=== PATIENT | female | born 1960 | race Caucasian/White ===

== ENCOUNTER 2016-10-21 18:18 | Emergency (ER) | payer MEDICAID, OTHER ==
[~2016-10-21] VITALS: Ht 162.6 cm; Wt 65.0 kg
[~2016-10-21 18:18] MED LIST: HDRP454O TOP; HYDR-3498 PO; METF500T4 PO
[2016-10-21 18:24] VITALS: Ht 162.6 cm; Wt 65.0 kg
--- NOTE | 2016-10-21 21:11 | ERD ---
ER Documentation Chief Complaint Date/Time DATE: 10/21/16 TIME: 21:10 Chief Complaint back pain and leg pain x 2 days HPI 56-year-old female presents here in emergency department for complaints of lower back pain for 2 days, patient discussed the pain as sharp pain, 8/10 scale , radiates from the left lower back to the left lower leg, worse upon movement. Patient has history of diabetes. Patient denies any incontinence. Patient denies any fever or chills. Patient denies any hematuria or dysuria. ROS All systems reviewed and are negative except as per history of present illness. 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 Hydrocodone/Acetaminophen ([place] 5-325 Tablet) 1 Each Tablet, 1 TAB PO Q6H Y for SEVERE PAIN LEVEL 7-10, #20 TAB Prov:HIEU NARVAEZ NP 10/21/16 Ibuprofen* (Motrin*) 600 Mg Tab, 600 MG PO Q6H Y for PAIN AND OR ELEVATED TEMP, #30 TAB Prov:HIEU NARVAEZ NP 10/21/16 Hydrophilic Base* (Aquaphor*) 454 Gm-Topical Oint, 1 APPLIC TOP BID for 30 Days , JAR Prov:PATRICIA PAYNE PA-C 11/20/15 Metformin* (Glucophage*) 500 Mg Tab, 500 MG PO BID, #30 TAB Prov:PATRICIA PAYNE PA-C 11/20/15 Hydrocodone Bit-Acetaminophen* ([place]*) 5-325 Mg Tab, 1 TAB PO Q6 Y for PAIN, # 4 TAB Prov:ARMANDO GREWLA DO 06/23/15 Allergies Allergies: Coded Allergies: No Known Allergy (Unverified , 11/20/15) PMhx/Soc History of Surgery: Yes (ectopic, tubal ligation) Hx Miscellaneous Medical Probl: Yes (dm) Hx Alcohol Use: No Hx Substance Use: No Hx Tobacco Use: No Smoking Status: Never smoker FmHx Family History: No coronary disease, No diabetes, No other Physical Exam Vitals Vital Signs Date Time Temp Pulse Resp B/P Pulse Ox O2 Delivery O2 Flow Rate FiO2 10/21/16 18:24 97.5 79 20 141/60 99 Physical Exam GENERAL: The patient is well developed and appropriate for usual state of health, in no apparent distress. CHEST: Clear to auscultation bilaterally. There are no rales, wheezes or rhonchi. HEART: Regular rate and rhythm. No murmurs, clicks, rubs or gallops. No S3 or S4. ABDOMEN: Soft, nontender and nondistended. Good bowel sounds. No rebound or guarding. No gross peritonitis. No gross organomegaly or masses. No Saunders sign or McBurney point tenderness. BACK: No midline or flank tenderness. Positive left straight leg test, muscle spasms noted in the paraspinal aspect of the lower lumbar spine. EXTREMITIES: Equal pulses bilaterally. There is no peripheral clubbing, cyanosis or edema. No focal swelling or erythema. Full range of motion. Grossly neurovascularly intact. NEURO: Alert and oriented. Cranial nerves 2-12 intact. Motor strength in all 4 extremities with 5/5 strength. Sensation grossly intact. Normal speech and gait. SKIN: There is no apparent rash or petechia. The skin is warm and dry. HEMATOLOGIC AND LYMPHATIC: There is no evidence of excessive bruising or lymphedema. No gross cervical, axillary, or inguinal lymphadenopathy. Results 24 hrs PROCEDURE: CT L-Spine. CLINICAL INDICATION: Back pain TECHNIQUE: A CT of the lumbar spine was performed on a multidetector CT scanner utilizing axial images from the thoracic lumbar junction through the lumbar sacral junction. Sagittal and coronal reformatted images were made. The CTDIvol is 37mGy and the DLP is 989mGycm. One or more of the following dose reduction techniques were used: Automated exposure control, Adjustment of the mA and/or kV according to patient size, and/or use of iterative reconstruction technique. COMPARISON: None available. FINDINGS: No acute lumbar vertebral compression fracture. Intraspinal linear fat density structure measuring 2.2 cm length at L2 and L3. L1-2: The disk space height is maintained. No significant disk protrusion, spinal canal stenosis or neural foraminal narrowing. L2-3: Discogenic degenerative endplate changes. No significant disk protrusion , spinal canal stenosis or neural foraminal narrowing. L3-4: Discogenic degenerative endplate changes. No significant disk protrusion , spinal canal stenosis or neural foraminal narrowing. L4-5: Discogenic degenerative endplate changes. Small disk bulge and mild facet arthropathy. No bony spinal canal narrowing. Mild bilateral foraminal narrowing.. L5-1: Small to moderate circumferential disk bulge and facet arthropathy. Moderate bilateral foraminal narrowing. No bony spinal canal narrowing. Bilateral sacroiliac joint degenerative changes. IMPRESSION: No acute lumbar vertebral compression fracture. Intraspinal linear fat density structure measuring 2.2 cm length at L2 and L3. This is indeterminate but may represent a filum terminale lipoma. Consider further evaluation with MRI if warranted. Mild discogenic disease L2-3 through L5-S1. Moderate bilateral foraminal narrowing of L5-S1 and mild bilateral foraminal narrowing L4-5. RPTAT: AA .Chester Quijano MD, MD Date Time Electronically viewed and signed by .Chester Quijano MD, MD on 10/21/2016 21:43 .T/ Procedures/MDM Medical Decision Making: Patient's pain is most likely consistent with a back strain, can be from the degenerative disc disease noted in the CT scan, can be also from sciatica. There is no suspicion for neurovascular compromise. Patient has intact sensation and circulation of the affected extremity and distal extremities. No incontinence, no suspicion for cauda equina syndrome, no saddle anesthesia, no symptoms of any acute bacterial infection, no symptoms of any perirectal abscesses, pilonidal cyst.There is low suspicion for septic arthritis. Patient does not have any fever. No symptoms of any aortic dissection or aortic aneurysm. Radiology exam not indicated at this time. Disposition: Home. Patient is given prescription for ibuprofen for mild to moderate pain, [place] for severe pain, gabapentin.. Patient was advised to avoid heavy lifting , apply warm compresses on affected area. Patient was advised that if symptoms are worse, numbness, tingling, high fever, unable to move joint , worsening symptoms, to return to emergency department immediately. Otherwise, patient is advised to follow up with the primary care doctor in 5-7 days for reevaluation of symptoms. Departure Diagnosis: Primary Impression: Back pain Back pain location: low back pain Chronicity: unspecified Back pain laterality: bilateral Sciatica presence: with sciatica Sciatica laterality: bilateral sciatica Qualified Code: M54.42 - Bilateral low back pain with bilateral sciatica, unspecified chronicity Condition: Stable Patient Instructions: Back Pain W/ Sciatica Additional Instructions: Patient is given prescription for ibuprofen for mild to moderate pain, [place] for severe pain, Flexeril for muscle spasm. Patient was advised to avoid heavy lifting , apply warm compresses on affected area. Patient was advised that if symptoms are worse, numbness, tingling, high fever, unable to move joint, worsening symptoms, to return to emergency department immediately. Otherwise, patient is advised to follow up with the primary care doctor in 5-7 days for reevaluation of symptoms. HIEU NARVAEZ NP Oct 21, 2016 21:11
--- NOTE | 2016-10-21 21:43 | RADRPT ---
PROCEDURE: CT L-Spine. CLINICAL INDICATION: Back pain TECHNIQUE: A CT of the lumbar spine was performed on a multidetector CT scanner utilizing axial im ages from the thoracic lumbar junction through the lumbar sacral junction. Sagittal and coronal ref ormatted images were made. The CTDIvol is 37mGy and the DLP is 989mGycm. One or more of the followin g dose reduction techniques were used: Automated exposure control, Adjustment of the mA and/or kV ac cording to patient size, and/or use of iterative reconstruction technique. COMPARISON: None available. FINDINGS: No acute lumbar vertebral compression fracture. Intraspinal linear fat density structure measuring 2.2 cm length at L2 and L3. L1-2: The disk space height is maintained. No significant disk protrusion, spinal canal stenosis or neural foraminal narrowing. L2-3: Discogenic degenerative endplate changes. No significant disk protrusion, spinal canal stenos is or neural foraminal narrowing. L3-4: Discogenic degenerative endplate changes. No significant disk protrusion, spinal canal stenos is or neural foraminal narrowing. L4-5: Discogenic degenerative endplate changes. Small disk bulge and mild facet arthropathy. No [place] spinal canal narrowing. Mild bilateral foraminal narrowing.. L5-1: Small to moderate circumferential disk bulge and facet arthropathy. Moderate bilateral forami nal narrowing. No bony spinal canal narrowing. Bilateral sacroiliac joint degenerative changes. IMPRESSION: No acute lumbar vertebral compression fracture. Intraspinal linear fat density structure measuring 2.2 cm length at L2 and L3. This is indeterminate but may represent a filum terminale lipoma. Consider further evaluation with MRI if warranted. Mild discogenic disease L2-3 through L5-S1. Moderate bilateral foraminal narrowing of L5-S1 and mild bilateral foraminal narrowing L4-5. RPTAT: AA .Chester Quijano MD, MD Date Time Electronically viewed and signed by .Chester Quijano MD, on 10/21/2016 21:43 .T/
[2016-10-21] MEDS ORDERED: IBUP-1542 PO (21:53)
[2016-10-21] MEDS ORDERED: GABA300C16 PO (21:53)
[2016-10-21] MEDS ORDERED: HYDR-906 PO (21:53)
[2016-10-21 22:25] VITALS: BP 150/74; PULSE 72; RESP 18; TEMP 98.1
== END 2016-10-21 22:25 | disposition home or self-care (01) ==
LOC: FTE 18:18
DX: M54.42 Lumbago with sciatica, left side (principal); M54.41 Lumbago with sciatica, right side; E11.9 Type 2 diabetes mellitus without complications; Z79.84 Long term (current) use of oral hypoglycemic drugs
CPT/HCPCS: 72131; Z7502

== ENCOUNTER 2018-05-28 16:46 | Emergency (ER) | payer OTHER ==
[~2018-05-28] VITALS: Ht 157.5 cm; Wt 80.0 kg
[~2018-05-28 16:46] MED LIST changes: +GABA300C16 PO; +HYDR-4011 PO; +IBUP-1542 PO; +METF-849 PO; -METF500T4 PO
[2018-05-28 17:06] VITALS: Ht 157.5 cm; Wt 80.0 kg
--- NOTE | 2018-05-28 20:21 | ERD ---
ER Documentation Chief Complaint Chief Complaint left knee pain s/p mechanical fall today HPI 57-year-old female, presents to the emergency department, complaining of left knee pain after a ground-level fall, mechanical, that occurred today, when the patient tripped over uneven pavement. The pain is 10/10. She denies distal weakness, numbness or tingling. No headache, no head trauma, no loss of consciousness. ROS All systems reviewed and are negative except as per history of present illness. Medications Home Meds Active Scripts Acetaminophen* (Tylenol*) 325 Mg Tablet, 2 TAB PO Q8 PRN for PAIN AND OR ELEVATED TEMP, #20 TAB Prov:CODY VILLA MD 05/28/18 Ibuprofen* (Motrin*) 600 Mg Tab, 600 MG PO Q8, #30 TAB Prov:CODY VILLA MD 05/28/18 Gabapentin* (Gabapentin*) 300 Mg Capsule, 300 MG PO BID, #60 CAP Prov:HIEU NARVAEZ NP 10/21/16 Hydrocodone/Acetaminophen ([place] 5-325 Tablet) 1 Each Tablet, 1 TAB PO Q6H PRN for SEVERE PAIN LEVEL 7-10, #20 TAB Prov:HIEU NARVAEZ NP 10/21/16 Ibuprofen* (Motrin*) 600 Mg Tab, 600 MG PO Q6H PRN for PAIN AND OR ELEVATED TEMP, #30 TAB Prov:HIEU NARVAEZ NP 10/21/16 Hydrophilic Base* (Aquaphor*) 454 Gm-Topical Oint, 1 APPLIC TOP BID for 30 Days, JAR Prov:PATRICIA PAYNE PA-C 11/20/15 Metformin* (Glucophage*) 500 Mg Tab, 500 MG PO BID, #30 TAB Prov:PATRICIA PAYNE PA-C 11/20/15 Hydrocodone Bit-Acetaminophen* ([place]*) 5-325 Mg Tab, 1 TAB PO Q6 PRN for PAIN, #4 TAB Prov:ARMANDO GREWAL DO 06/23/15 Allergies Allergies: Coded Allergies: No Known Allergy (Unverified , 11/20/15) PMhx/Soc History of Surgery: Yes (ectopic, tubal ligation) Hx Miscellaneous Medical Probl: Yes (dm) Hx Alcohol Use: No Hx Substance Use: No Hx Tobacco Use: No Smoking Status: Never smoker Physical Exam Vitals Vital Signs Date Temp Pulse Resp B/P (MAP) Pulse Ox O2 O2 Flow FiO2 Time Delivery Rate 05/28/18 97.8 92 18 160/63 97 17:06 (95) Physical Exam Const: No acute distress Head: Atraumatic Eyes: Normal Conjunctiva ENT: Normal External Ears, Nose and Mouth. Neck: Full range of motion. No meningismus. Resp: Clear to auscultation bilaterally Cardio: Regular rate and rhythm, no murmurs Abd: Soft, non tender, non distended. Normal bowel sounds Skin: No petechiae or rashes Back: No midline or flank tenderness Ext: Left knee: Normal inspection, peripatellar crepitus, full passive range of motion. Distal neurovascular exam intact. Neur: Awake and alert Psych: Normal Mood and Affect Results 24 hrs Current Medications Medications Dose Sig/Patrick Start Time Status Last (Trade) Ordered Route PRN Stop Time Admin Dose Reason Admin Ketorolac 30 mg ONCE STAT 05/28/18 DC 05/28/18 Tromethamine IM 20:26 20:36 (Toradol) 05/28/18 20:29 Patient: ANISHA YBARRA : 1960 Age: 57 Sex: F [id number] DOS: 05/28/182025 Ordering MD: CODY VILLA MD Location: FTE Room/Bed: PROCEDURE: XR knee CLINICAL INDICATION: Fall, left knee pain. TECHNIQUE: Three views of the left knee were obtained. COMPARISON: None. FINDINGS: There is no acute fracture or dislocation. Osseous structures are intact. Joint spaces are maintained. There is a small knee joint effusion. IMPRESSION: 1. No acute osseous abnormality. 2. Small knee joint effusion. Procedures/MDM Acute left knee pain: no red flags. Differential diagnosis include but not limited to: Knee contusion, meniscus injury, tendon/ligament injury, arthritis; low suspicion for fracture, dislocation, septic arthritis. Neurovascular exam grossly intact. no clinical findings suggestive of acute infectious process, no acute deformity, no edema, no rashes. Pertinent Data: X-rays: No fracture or dislocation Physical examination and clinical presentation consistent most likely with acute knee contusion. During the ED course the patient received treatment with Toradol IM presenting overall improvement of the symptoms. Results and clinical impression discussed with the patient who agrees with management. The patient is stable to be treated outpatient and will be discharged home with recommendations for ice, rest and partial immobilization. NSAIDs 3 times daily for 5 days and close monitoring. The patient was instructed to follow up with the primary care provider in the next 48h. If symptoms persist, worsen or new symptoms develop, then patient should return to the ED immediately. Instructions explained and given to patient with acknowledgment and demonstrated understanding. Disclaimer: Inadvertent spelling and grammatical errors are likely due to EHR/dictation software use and do not reflect on the overall quality of patient care. Also, please note that the electronic time recorded on this note does not necessarily reflect the actual time of the patient encounter. Departure Diagnosis: Primary Impression: Acute traumatic internal derangement of left knee Condition: Stable Additional Instructions: Muchas simón por [facility] para cain servicio. Esperamos que en cain visita a la jaqui de emergencia cain problema medico haya sido solucionado y que se sienta mucho mejor. Para estar seguros que cain mejoria sigue en proceso, le pedimos el favor de hacer yury pedro de seguimiento medico con cain doctor primario en los proximos 2-4 forrester. Lleve con usted estos documentos y las medicinas recetadas. Si hakeem sintomas empeoran, NO SE ESPERE, por favor regrese a jaqui de emergencia INMEDIATAMENTE. En jyoti que usted no tenga un mdico de atencin primaria: Llame al mdico o clnica comunitaria de referencia que aparece abajo filiberto las horas de consultorio para hacer yury pedro para que le vean. CLINICAS: [facility] [phone] [id number] [facility] [place] [phone] [address] [facility] 712 [phone] [address] [facility] [phone] [id number] [facility] 673 [phone] [facility]. [phone] CODY CANSEOC MD May 28, 2018 20:21
[2018-05-28] MEDS ORDERED: KETOROLAC 30 MG INJ IM STA (20:26)
[2018-05-28] MEDS ORDERED: ACET325T33 PO (21:44)
[2018-05-28] MEDS ORDERED: IBUP-1542 PO (21:44)
[2018-05-28 22:00] VITALS: BP 144/72; PULSE 71; RESP 19
== END 2018-05-28 22:01 | disposition home or self-care (01) ==
LOC: FTE 16:46
DX: M23.92 Unspecified internal derangement of left knee (principal); E11.9 Type 2 diabetes mellitus without complications; Z79.84 Long term (current) use of oral hypoglycemic drugs
CPT/HCPCS: 73562; 96372; J1885; Z7502